=== PATIENT | male | born 1955 | race Caucasian/White ===

== ENCOUNTER 2017-06-13 08:53 | Emergency (ER) | payer OTHER ==
[~2017-06-13] VITALS: Ht 182.9 cm; Wt 130.0 kg
[2017-06-13 08:58] VITALS: Ht 182.9 cm; Wt 130.0 kg
[2017-06-13] MEDS ORDERED: IBUPROFEN 800 MG TAB PO ONE (09:30)
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
[2017-06-13] MEDS ORDERED: HYDR-906 PO (11:19)
[2017-06-13] MEDS ORDERED: IBUP800T25 PO (11:19)
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
== END 2017-06-13 12:00 | disposition home or self-care (01) ==
LOC: FTE 08:53
DX: S16.1XXA Strain of muscle, fascia and tendon at neck level, initial encounter (principal); S00.83XA Contusion of other part of head, initial encounter; Y04.8XXA Assault by other bodily force, initial encounter
CPT/HCPCS: 70450; 70486; 72125